=== PATIENT | female | born 1955 | race Caucasian/White ===

== ENCOUNTER 2016-09-10 06:48 | Emergency (ER) | payer OTHER ==
[~2016-09-10] VITALS: Ht 157.5 cm; Wt 84.0 kg
[~2016-09-10 06:48] MED LIST: ASPI-805 PO; BLOOD PRESSURE; OMEP20CA16 PO
[2016-09-10 06:51] VITALS: Ht 157.5 cm; Wt 84.0 kg
[2016-09-10] MEDS ORDERED: ONDANSETRON 4 MG INJ IV STA (08:19)
[2016-09-10] MEDS ORDERED: SOD CHLORIDE 0.9% 500 ML IV STA (08:19)
--- NOTE | 2016-09-10 08:39 | ERD ---
ER Documentation Chief Complaint Date/Time DATE: 09/10/16 TIME: 08:38 Chief Complaint dizziness since thursday HPI 61-year-old woman here for dizziness 2 days with elevated blood pressure this morning, she states she uses her medications and her blood pressure normally does not want so high. She denies abdominal pain, no chest pain, no shortness of breath, no fevers or chills, no vomiting or diarrhea, no complaints of weakness in her arms or legs. ROS All systems reviewed and are negative except as per history of present illness. Medications Home Meds Active Scripts Cephalexin* (Keflex*) 500 Mg Capsule, 500 MG PO QID for 5 Days, CAP Prov:BASIA LEDESMA MD 09/10/16 Reported Medications Enalapril Maleate* (Enalapril Maleate*) 5 Mg Tablet, 5 MG PO DAILY, TAB 09/10/16 Omeprazole* (Omeprazole*) 20 Mg Capsule.dr, 20 MG PO DAILY, CAP 06/21/14 Discontinued Reported Medications [Blood Pressure ] No Conflict Check, DAILY 06/21/14 Aspirin* ([place] Aspirin*) 81 Mg Tab.chew, 81 MG PO DAILY for 7 Days, TAB.CHEW 06/21/14 Allergies Allergies: Coded Allergies: No Known Allergy (Unverified , 09/10/16) PMhx/Soc Hypertension, gastritis History of Surgery: Yes (SINUS SURG) Anesthesia Reaction: No Hx Neurological Disorder: No Hx Respiratory Disorders: No Hx Cardiac Disorders: Yes (HIGH BP) Hx Psychiatric Problems: No Hx Miscellaneous Medical Probl: No Hx Alcohol Use: Yes (VERY OCCASIONALLY) Hx Substance Use: No Hx Tobacco Use: No (QUIT MANY YEARS) FmHx Family History: No diabetes Physical Exam Vitals Vital Signs Date Time Temp Pulse Resp B/P Pulse Ox O2 Delivery O2 Flow Rate FiO2 09/10/16 09:59 60 18 134/73 98 Room Air 09/10/16 08:39 61 18 150/86 100 Room Air 09/10/16 06:51 98.8 89 20 176/99 99 Physical Exam GENERAL: Well-developed, well-nourished, well-hydrated, in no apparent distress , looks nontoxic in appearance HEENT: Moist mucous membranes, pink conjunctiva, no cervical spine tenderness or step-off deformities, no goiter, no jaundice or icterus, extraocular movements intact without pain. No submandibular induration, and no pharyngeal erythema NEURO: Alert and oriented 3, cranial nerves II through XII intact bilaterally, pupils equal round reactive to light, no focal deficits or facial asymmetry, sensation intact distally Strength 5/5 in upper and lower extremities bilaterally CARDIAC: Regular rate and rhythm, no murmurs rubs or gallops LUNGS: Clear bilaterally no wheezing crackles or stridor ABDOMEN: Soft nontender, no guarding, no rigidity, no rebound, no psoas sign no obturator sign. Normoactive bowel sounds SKIN: Warm and dry to touch, no abrasions, contusions, or hematomas, no lacerations, no ecchymosis, no target lesions, and without ulcers EXTREMITIES: No clubbing cyanosis or edema, calves are bilaterally symmetrical, no Homans sign, no popliteal cord sign. Distal pulses equal and bilateral PSYCH: Normal affect without agitation or irritability Result Diagram: 09/10/16 0849 09/10/16 0849 Results 24 hrs Laboratory Tests Test 09/10/16 08:30 09/10/16 08:49 Urine Color LT. YELLOW Urine Clarity CLEAR Urine pH 6.0 Urine Specific [place] <=1.005 Urine Ketones NEGATIVE Urine Nitrite NEGATIVE Urine Bilirubin NEGATIVE Urine Urobilinogen 0.2 E.U./dL Urine Leukocyte Esterase 3+ Urine Microscopic RBC 5-10/HPF Urine Microscopic WBC 25-50/HPF Urine Epithelial Cells MODERATE Urine Bacteria MODERATE Urine Hemoglobin TRACE Urine Glucose NEGATIVE% Urine Total Protein NEGATIVE White Blood Count 7.810^3/ul Red Blood Count 4.6810^6/ul Hemoglobin 13.6g/dl Hematocrit 40.9% Mean Corpuscular Volume 87.4fl Mean Corpuscular Hemoglobin 29.1pg Mean Corpuscular Hemoglobin Concent 33.3g/dl Red Cell Distribution Width 13.2% Platelet Count 16259^3/UL Mean Platelet Volume 10.1fl Neutrophils % 65.1% Lymphocytes % 27.4% Monocytes % 6.0% Eosinophils % 0.4% Basophils % 0.5% Nucleated Red Blood Cells % 0.0/100WBC Neutrophils # 5.110^3/ul Lymphocytes # 2.110^3/ul Monocytes # 0.510^3/ul Eosinophils # 0.010^3/ul Basophils # 0.010^3/ul Nucleated Red Blood Cells # 0.010^3/ul Sodium Level 144mmol/L Potassium Level 4.1mmol/L Chloride Level 106mmol/L Carbon Dioxide Level 28mmol/L Anion Gap 14 Blood Urea Nitrogen 15mg/dl Creatinine 0.76mg/dl Glucose Level 125mg/dl Calcium Level 9.8mg/dl Total Bilirubin 0.4mg/dl Direct Bilirubin 0.00mg/dl Indirect Bilirubin 0.4mg/dl Aspartate Amino Transf (AST/SGOT) 21IU/L Alanine Aminotransferase (ALT/SGPT) 35IU/L Alkaline Phosphatase 89IU/L Troponin I < 0.012ng/ml Total Protein 8.2g/dl Albumin 5.1g/dl Globulin 3.10g/dl Albumin/Globulin Ratio 1.64 Lipase 230U/L Current Medications Medications (Trade) Dose Ordered Sig/Barbara Route PRN Reason Start Time Stop Time Status Last Admin Dose Admin Sodium Chloride (NS) 500 ml @ 500 mls/hr Q1H STAT IV 09/10/16 08:19 09/10/16 09:18 DC 09/10/16 08:52 Ondansetron HCl (Zofran Inj) 4 mg ONCE STAT IV 09/10/16 08:19 09/10/16 08:21 DC 09/10/16 08:50 Clonidine (Catapres) 0.1 mg ONCE ONCE PO 09/10/16 08:30 09/10/16 08:31 DC 09/10/16 08:51 Cephalexin (Keflex) 500 mg ONCE ONCE PO 09/10/16 09:30 09/10/16 09:34 DC 09/10/16 09:58 Procedures/MDM IV line was established patient was placed on cardiac rehab nurse rhythm strip revealed a sinus rhythm at about 60 bpm with upright P and T waves. Patient was afebrile. EKG performed, read by me revealed a normal sinus rhythm at 63 bpm, left axis deviation, narrow QRS complex with no concerning ST elevations or depressions noted. There is poor R-wave progression in precordial leads consistent with previous OR. CT scan of the brain was performed that was negative for acute bleed mass or shift. I administered 1 L normal saline intravenously and Zofran 4 mg IV, patient's blood pressure improved without any further intervention. CBC was unremarkable, electrolytes normal, liver function tests were normal, troponin was negative. Urine analysis was concerning for early urinary tract infection. I treated her here with cephalexin 500 mg p.o. 1. Patient's neurologic exam remained normal and her dizziness did improve and she was ambulatory without difficulty and had no neurologic deficits on reexamination. Differential diagnoses considered, included but not limited to acute coronary syndrome, pulmonary embolism, aortic dissection, abdominal aortic aneurysm, sepsis, stroke, meningitis, encephalitis, pneumonia, appendicitis, cholecystitis , bowel obstruction, pyelonephritis, nephrolithiasis, cystitis, as well as metabolic, hematologic, and electrolyte abnormalities. As well as abscess, cellulitis, fractures, and dislocations. Patient feels much better at this time, and vital signs are normal, symptoms have improved. I did give strict instructions to return to the ED if symptoms continue or worsen, patient will otherwise follow-up with primary care physician. Patient understood instructions and agreed to plan. Disclaimer: Inadvertent spelling or grammatical errors are likely due to EHR/ dictation software use and do not reflect on the overall quality of patient care. Departure Diagnosis: Primary Impression: Dizziness Additional Impressions: Hypertension Hypertension type: essential hypertension Qualified Code: I10 - Essential hypertension UTI (urinary tract infection) Urinary tract infection type: acute cystitis Hematuria presence: without hematuria Qualified Code: N30.00 - Acute cystitis without hematuria Condition: BASIA Mack MD Sep 10, 2016 08:39
[2016-09-10 09:02] LABS: ADD UMIC YES; URINE BILIRUBIN (Dip) NEGATIVE (NEGATIVE); URINE BLOOD (Dip) TRACE (NEGATIVE); URINE COLOR LT. YELLOW (YELLOW); URINE GLUCOSE (Dip) NEGATIVE (NEGATIVE); URINE KETONES (Dip) NEGATIVE (NEGATIVE); URINE LEUKOCYTE ESTERASE (Dip) 3+ (NEGATIVE); URINE NITRITE (Dip) NEGATIVE (NEGATIVE); URINE TOTAL PROTEIN (Dip) NEGATIVE (NEGATIVE); URINE UROBILINOGEN (Dip) 0.2 E.U./dL (0.1-1.0)
[2016-09-10 09:08] LABS: ADD SCAN DIFF NO
[2016-09-10 09:12] LABS: BASOPHILS % 0.5 % (0.0-2.0); EOSINOPHILS % 0.4 % (0.0-7.0); HEMATOCRIT 40.9 % (37.0-47.0); HEMOGLOBIN 13.6 g/dl (12.0-16.0); LYMPHOCYTES # 2.1 10^3/ul (0.8-2.9); LYMPHOCYTES % 27.4 % (15.0-51.0); MEAN CORPUSCULAR HEMOGLOBIN 29.1 pg (29.0-33.0); MEAN CORPUSCULAR HGB CONC 33.3 g/dl (32.0-37.0); MEAN CORPUSCULAR VOLUME 87.4 fl (82.0-101.0); MEAN PLATELET VOLUME 10.1 fl (7.4-10.4); MONOCYTE # 0.5 10^3/ul (0.3-0.9); NEUTROPHIL # 5.1 10^3/ul (1.6-7.5); NEUTROPHILS % 65.1 % (39.0-77.0); PLATELET COUNT 270 10^3/UL (140-415); RED BLOOD COUNT 4.68 10^6/ul (4.20-5.40); RED CELL DISTRIBUTION WIDTH 13.2 % (11.5-14.5); WHITE BLOOD COUNT 7.8 10^3/ul (4.8-10.8)
[2016-09-10 09:20] LABS: BACTERIA,URINE MODERATE
[2016-09-10 09:27] LABS: ALANINE AMINOTRANSFERASE 35 IU/L (13-69); ALBUMIN 5.1 g/dl (3.3-4.9); ALBUMIN/GLOBULIN RATIO 1.64; ALKALINE PHOSPHATASE 89 IU/L (42-121); ANION GAP 14 (8-16); ASPARTATE AMINO TRANSFERASE 21 IU/L (15-46); BILIRUBIN,INDIRECT 0.4 mg/dl (0-1.1); BILIRUBIN,TOTAL 0.4 mg/dl (0.2-1.3); BLOOD UREA NITROGEN 15 mg/dl (7-20); CALCIUM 9.8 mg/dl (8.4-10.2); CARBON DIOXIDE 28 mmol/L (21-31); CHLORIDE 106 mmol/L (97-110); CREATININE 0.76 mg/dl (0.44-1.00); GLUCOSE 125 mg/dl (70-220); POTASSIUM 4.1 mmol/L (3.5-5.1); SODIUM 144 mmol/L (135-144); TOTAL PROTEIN 8.2 g/dl (6.1-8.1)
[2016-09-10] MEDS ORDERED: CEPHALEXIN 500 MG CAP PO ONE (09:30)
[2016-09-10] MEDS ORDERED: ENAL5TAB PO (09:31)
[2016-09-10] MEDS ORDERED: CEPH-443 PO (09:38)
--- NOTE | 2016-09-10 09:38 | RADRPT ---
PROCEDURE: CT Brain without contrast. CLINICAL INDICATION: Dizziness for 3 days. Rule out intracranial hemorrhage. TECHNIQUE: CT scan of the brain was performed on a multidetector high-resolution CT scan. Axial im aging was obtained of the brain without contrast administration. Coronal and sagittal reformatted i mages were obtained from the axial source images. Standard CT scan of the head without contrast prot ocols were performed. The total exam CTDI equals 44.81 mGy and the total exam DLP equals 630.2 mGy-cm. One or more of the following dose reduction techniques were used: - Automated exposure control. - Adjustment of the mA and/or kV according to patient size. Use of iterative reconstruction technique. COMPARISON: None. FINDINGS: The ventricular system and peripheral CSF spaces are unremarkable. Negative for intracranial masses hemorrhages or midline shift. The horn-white matter junction is unremarkable. There is mild nonsp ecific periventricular deep white matter changes consistent with chronic microvascular ischemic dise ase. the bones and calvarium are intact. Paranasal sinuses and mastoids are unremarkable. IMPRESSION: 1. No evidence of intracranial masses hemorrhages or midline shift. 2. Mild nonspecific chronic microvascular ischemic disease. RPTAT:AAJJ Physician Moses Date Time Electronically viewed and signed by Physician Moses on 09/10/2016 09:37 BM/
[2016-09-10 09:43] LABS: TROPONIN-I < 0.012 ng/ml (0.00-0.12)
[2016-09-10 09:59] VITALS: BP 134/73; PULSE 60; RESP 18
== END 2016-09-10 10:15 | disposition home or self-care (01) ==
LOC: E/R 06:48
DX: R42 Dizziness and giddiness (principal); I10 Essential (primary) hypertension; N30.00 Acute cystitis without hematuria; Z79.82 Long term (current) use of aspirin; Z87.891 Personal history of nicotine dependence
CPT/HCPCS: 36415; 70450; 80053; 81001; 83690; 84484; 85025; 93005; 96374; J2405; J7040; Z7502; Z7610

== ENCOUNTER 2016-09-12 06:21 | Emergency (ER) | payer OTHER ==
[~2016-09-12] VITALS: Ht 160 cm; Wt 83.0 kg
[~2016-09-12 06:21] MED LIST changes: -ASPI-805 PO; -BLOOD PRESSURE; +CEPH-443 PO; +ENAL5TAB PO
[2016-09-12 06:30] VITALS: Ht 160 cm; Wt 83.0 kg
[2016-09-12] MEDS ORDERED: MECL12.574 PO (06:53)
--- NOTE | 2016-09-12 06:57 | ERD ---
ER Documentation Chief Complaint Date/Time DATE: 09/12/16 TIME: 06:40 Chief Complaint dizziness w/ NV X1 week HPI 61-year-old female presents to the emergency department complaining of vertiginous dizziness that she has had for a week. Patient states that she had a study performed of her abdomen. She believes that after receiving what I presume is contrast for the study, she began having a nonspecific vertiginous dizziness. She feels as if the contrast may have made her sick. She presented to our emergency department 2 days ago complaining of vertiginous dizziness as well as concerns over her high blood pressure. She was evaluated with a full set of lab tests indicating no evidence of kidney injury, dehydration or infection other than a UTI. She was not septic at that time. She also had a CT scan of her head demonstrating no signs of stroke. She was provided with medications for her urinary tract infection which she is taking, but returns to the emergency department today with ongoing vertigo. She reports no headache, focal weakness, focal numbness, difficulty speaking or other stroke symptoms. She feels nauseous with the vertigo, but has had no severe vomiting. She reports no fevers, chills or other complaints. ROS All systems reviewed and are negative except as per history of present illness. Medications Home Meds Active Scripts Meclizine Hcl* (Antivert*) 12.5 Mg Tab, 12.5 MG PO Q6H Y for DIZZINESS, #20 TAB Prov:MONICA MOSES 09/12/16 Cephalexin* (Keflex*) 500 Mg Capsule, 500 MG PO QID for 5 Days, CAP Prov:BASIA LEDESMA MD 09/10/16 Reported Medications Enalapril Maleate* (Enalapril Maleate*) 5 Mg Tablet, 5 MG PO DAILY, TAB 09/10/16 Omeprazole* (Omeprazole*) 20 Mg Capsule.dr, 20 MG PO DAILY, CAP 06/21/14 Discontinued Reported Medications [Blood Pressure ] No Conflict Check, DAILY 06/21/14 Aspirin* ([place] Aspirin*) 81 Mg Tab.chew, 81 MG PO DAILY for 7 Days, TAB.CHEW 06/21/14 Allergies Allergies: Coded Allergies: No Known Allergy (Unverified , 09/10/16) PMhx/Soc History of Surgery: No Anesthesia Reaction: No Hx Neurological Disorder: No Hx Respiratory Disorders: No Hx Cardiac Disorders: No Hx Psychiatric Problems: No Hx Miscellaneous Medical Probl: No Hx Alcohol Use: No Hx Substance Use: No Hx Tobacco Use: No Smoking Status: Never smoker FmHx Noncontributory for chief complaint Physical Exam Vitals Vital Signs Date Time Temp Pulse Resp B/P Pulse Ox O2 Delivery O2 Flow Rate FiO2 09/12/16 06:30 98.3 77 18 181/77 99 Physical Exam GENERAL: The patient is well developed and appropriate for usual state of health in no apparent distress HEENT: Pupils equal, round, and reactive to light. EOMI. There is no scleral icterus. NECK: C-spine is soft and supple, there is no meningismus. There is no cervical lymphadenopathy. LUNGS: Clear to auscultation bilaterally. There are no rales, wheezes or rhonchi. HEART: Regular rate and rhythm, no murmurs, clicks, rubs or gallops. ABDOMEN: Soft, non-tender, non-distended. There are bowel sounds in all four quadrants. No rebound or guarding. EXTREMITIES: There is no peripheral cyanosis or edema. No focal swelling or erythema. NEURO: The patient moves all four extremities with 5/5 strength. Cranial nerves II - XII are intact. Normal gait. Alert and oriented. Finger to nose is normal bilaterally SKIN: There is no apparent rash or petechiae. HEME/LYMPHATIC: There is no evidence of excessive bruising or lymphedema. PSYCHIATRIC: The patient does not appear anxious or depressed. Procedures/MDM Patient was taken to a room, seen and examined Medical decision makin-year-old female presents to the emergency department with ongoing concerns of what appears to be a peripheral vertigo. Patient has no signs of stroke or other findings that make me concerned of central vertigo and she has had a CT scan in the last 2 days demonstrating no signs of intracranial concerns. She has no evidence of dehydration, sepsis or other high-risk issues that may be causing the dizziness. After review of her lab tests from 2 days ago, it is clear that her concern over the contrast causing her dizziness is also unfounded. After reassurance, she is clinically well and appears appropriate for outpatient care. Departure Diagnosis: Primary Impression: Vertigo Condition: Stable Patient Instructions: Vertigo, Unspecified Additional Instructions: See your doctor for follow-up as discussed. Take a copy of your test results, if appropriate, to this follow-up visit. See your doctor or return here if your symptoms do not improve as expected. At any time, please return to the emergency department for any change or worsening in her symptoms. MONICA MOSES Sep 12, 2016 06:57
[2016-09-12 07:40] VITALS: BP 148/96; PULSE 86; RESP 20; TEMP 98.3
[2016-09-12] MEDS ORDERED: MECLIZINE 12.5 MG TAB PO ONE (08:00)
== END 2016-09-12 07:42 | disposition home or self-care (01) ==
LOC: E/R 06:21
DX: R42 Dizziness and giddiness (principal); R40.2252 Coma scale, best verbal response, oriented, at arrival to emergency department; R40.2142 Coma scale, eyes open, spontaneous, at arrival to emergency department; R40.2362 Coma scale, best motor response, obeys commands, at arrival to emergency department; Z79.82 Long term (current) use of aspirin
CPT/HCPCS: Z7502; Z7610; 99283

== ENCOUNTER 2017-03-28 21:06 | Emergency (ER) | payer OTHER ==
[~2017-03-28] VITALS: Ht 160 cm; Wt 80.9 kg
[~2017-03-28 21:06] MED LIST changes: +MECL12.574 PO
[2017-03-28 21:12] VITALS: Ht 160 cm; Wt 80.9 kg
[2017-03-28] MEDS ORDERED: LABETALOL HCL 20MG INJ IV ONE (22:30)
[2017-03-28 22:50] LABS: BASOPHIL # 0.1 10^3/ul (0.0-0.1); BASOPHILS % 0.6 % (0.0-2.0); EOSINOPHILS % 0.4 % (0.0-7.0); HEMATOCRIT 36.4 % (37.0-47.0); HEMOGLOBIN 12.8 g/dl (12.0-16.0); LYMPHOCYTES # 2.7 10^3/ul (0.8-2.9); LYMPHOCYTES % 24.4 % (15.0-51.0); MEAN CORPUSCULAR HEMOGLOBIN 29.7 pg (29.0-33.0); MEAN CORPUSCULAR HGB CONC 35.2 g/dl (32.0-37.0); MEAN CORPUSCULAR VOLUME 84.5 fl (82.0-101.0); MONOCYTE # 0.7 10^3/ul (0.3-0.9); MONOCYTES % 6.2 % (0.0-11.0); NEUTROPHIL # 7.4 10^3/ul (1.6-7.5); NEUTROPHILS % 68.1 % (39.0-77.0); PLATELET COUNT 264 10^3/UL (140-415); RED BLOOD COUNT 4.31 10^6/ul (4.20-5.40); WHITE BLOOD COUNT 10.9 10^3/ul (4.8-10.8)
--- NOTE | 2017-03-28 22:55 | ERD ---
ER Documentation Chief Complaint Chief Complaint Dizziness, HTN episode HPI This 62-year-old female, presents for dizziness, lightheadedness and a high blood pressure which she took at home. Also had a dry mouth and increased urinary frequency. Denies chest pain or shortness of breath. States that she is taking her normal metoprolol and an HEMA inhibitor. She notes that over time lately her blood pressure has been increasing over the last week and her blood pressure medication is no longer controlling it. All day today she has been feeling bad with the dizziness and uneasiness. ROS All systems reviewed and are negative except as per history of present illness. Medications Home Meds Active Scripts Amlodipine Besylate* (Amlodipine Besylate*) 10 Mg Tablet, 10 MG PO DAILY, #30 TAB Prov:SHUKRI QUINTANILLA DO 03/29/17 Sertraline Hcl* (Sertraline Hcl*) 25 Mg Tablet, 25 MG PO DAILY, #30 TAB Prov:SHUKRI QUINTANILLA DO 03/29/17 Meclizine Hcl* (Antivert*) 12.5 Mg Tab, 12.5 MG PO Q6H Y for DIZZINESS, #20 TAB Prov:MONICA MOSES 09/12/16 Cephalexin* (Keflex*) 500 Mg Capsule, 500 MG PO QID for 5 Days, CAP Prov:BASIA LEDESMA MD 09/10/16 Reported Medications Enalapril Maleate* (Enalapril Maleate*) 5 Mg Tablet, 5 MG PO DAILY, TAB 09/10/16 Omeprazole* (Omeprazole*) 20 Mg Capsule.dr, 20 MG PO DAILY, CAP 06/21/14 Allergies Allergies: Coded Allergies: No Known Allergy (Unverified , 09/10/16) PMhx/Soc History of Surgery: No Anesthesia Reaction: No Hx Neurological Disorder: No Hx Respiratory Disorders: No Hx Cardiac Disorders: No Hx Psychiatric Problems: No Hx Miscellaneous Medical Probl: No Hx Alcohol Use: No Hx Substance Use: No Hx Tobacco Use: No Physical Exam Vitals Vital Signs Date Time Temp Pulse Resp B/P Pulse Ox O2 Delivery O2 Flow Rate FiO2 03/28/17 23:30 98.5 85 20 127/75 94 Room Air 03/28/17 22:25 98.5 73 20 163/82 97 Room Air 03/28/17 21:12 98.5 100 20 199/104 99 Physical Exam Const: [] Distress, appears uncomfortable, obese female Head: Atraumatic Eyes: Normal Conjunctiva EOMI, PERRLA ENT: Normal External Ears, Nose and Mouth. Neck: Full range of motion.. No JVD although difficult to evaluate secondary to generous habitus Resp: Clear to auscultation bilaterally Cardio: Regular tachycardia, no murmurs Abd: Soft, non tender, non distended. Normal bowel sounds Skin: No petechiae or rashes Back: No midline or flank tenderness Ext: No cyanosis, or edema Neur: Awake and alert and oriented 3, cranial to 12 intact, no cerebellar deficits Psych: Anxious Result Diagram: 03/28/171 03/28/172240 Results 24 hrs Laboratory Tests Test 03/28/17 22:40 03/28/17 22:41 Urine Color STRAW Urine Clarity CLEAR Urine pH 5.0 Urine Specific [place] 1.013 Urine Ketones TRACEmg/dL Urine Nitrite NEGATIVEmg/dL Urine Bilirubin NEGATIVEmg/dL Urine Urobilinogen NEGATIVEmg/dL Urine Leukocyte Esterase NEGATIVELeu/ul Urine Microscopic RBC 0/HPF Urine Microscopic WBC 2/HPF Urine Hemoglobin 1+mg/dL Urine Glucose NEGATIVEmg/dL Urine Total Protein NEGATIVEmg/dl White Blood Count 10.910^3/ul Red Blood Count 4.3110^6/ul Hemoglobin 12.8g/dl Hematocrit 36.4% Mean Corpuscular Volume 84.5fl Mean Corpuscular Hemoglobin 29.7pg Mean Corpuscular Hemoglobin Concent 35.2g/dl Red Cell Distribution Width 13.0% Platelet Count 13081^3/UL Mean Platelet Volume 10.0fl Neutrophils % 68.1% Lymphocytes % 24.4% Monocytes % 6.2% Eosinophils % 0.4% Basophils % 0.6% Nucleated Red Blood Cells % 0.0/100WBC Neutrophils # 7.410^3/ul Lymphocytes # 2.710^3/ul Monocytes # 0.710^3/ul Eosinophils # 0.010^3/ul Basophils # 0.110^3/ul Nucleated Red Blood Cells # 0.010^3/ul Sodium Level 140mmol/L Potassium Level 4.0mmol/L Chloride Level 105mmol/L Carbon Dioxide Level 24mmol/L Anion Gap 15 Blood Urea Nitrogen 18mg/dl Creatinine 0.76mg/dl Glucose Level 146mg/dl Calcium Level 9.7mg/dl Troponin I < 0.012ng/ml Current Medications Medications (Trade) Dose Ordered Sig/Barbara Route PRN Reason Start Time Stop Time Status Last Admin Dose Admin Labetalol HCl (Labetalol) 10 mg ONCE ONCE IV 03/28/17 22:30 03/28/17 22:31 DC 03/28/17 22:45 Alprazolam (Xanax) 0.5 mg ONCE ONCE PO 03/28/17 23:00 03/28/17 23:01 DC 03/28/17 22:45 Procedures/MDM 62-year-old female with severe hypertension leading to a feeling of dizziness. I have low suspicion for subarachnoid hemorrhages patient has not had any pain. Blood pressure was lowered acutely with medication labetalol IV all of her symptoms resolved and she felt well. I also gave her a 0.5 mg Xanax as she is on Ativan and felt symptoms anxiety such as dry mouth and had tachycardia. Negative troponin. No evidence of acute infection. She is completely asymptomatic I am going to discharge her with primary care follow-up and return precautions with instructions to obtain an echocardiogram as an outpatient. Also discharging her with Zoloft to begin treatment for long-term anxiety as well as amlodipine 10 mg for blood pressure control. Primary care follow-up as soon as possible which may not be until Thursday because of the holiday weekend. EKG interpretation: Normal sinus rhythm rate of 91, left axis deviation, low voltage EKG, possible mild T-wave flattening in all leads secondary to low voltage, no ST or T-wave changes concerning for acute ischemia. Abnormal EKG Cardiac e monitor interpretation: Sinus tachycardia and normal sinus rhythm without arrhythmia Chest x-ray interpretation: See no acute process. I see no widened mediastinum , pneumothorax, no pulmonary edema, no fractures Critical care time greater than 35 minutes: This includes use of vasoactive pain medication labetalol in a patient with severe hypertension, correction of unstable vital signs, multiple space bedside to reassess her status, review of chart, discussion with patient. This does not include any billable procedures. Departure Diagnosis: Primary Impression: Hypertensive crisis Additional Impression: Dizziness Condition: SHUKRI Olvera DO Mar 28, 2017 22:54
[2017-03-28] MEDS ORDERED: ALPRAZOLAM 0.25 MG TAB PO ONE (23:00)
[2017-03-28 23:07] LABS: ADD UMIC YES; UR ASCORBIC ACID NEGATIVE (NEGATIVE); UR BILIRUBIN (Dip) NEGATIVE (NEGATIVE); UR BLOOD (Dip) 1+ mg/dL (NEGATIVE); UR CLARITY CLEAR (CLEAR); UR COLOR STRAW (YELLOW); UR GLUCOSE (Dip) NEGATIVE (NEGATIVE); UR KETONES (Dip) TRACE mg/dL (NEGATIVE); UR LEUKOCYTE ESTERASE (Dip) NEGATIVE Leu/ul (NEGATIVE); UR NITRITE (Dip) NEGATIVE (NEGATIVE); UR RBC 0 /HPF (0-5); UR SPECIFIC GRAVITY (Dip) 1.013 (1.003-1.030); UR TOTAL PROTEIN (Dip) NEGATIVE (NEGATIVE); UR UROBILINOGEN (Dip) NEGATIVE (NEGATIVE)
--- NOTE | 2017-03-28 23:16 | RADRPT ---
PROCEDURE: XR Chest. CLINICAL INDICATION: Chest pain TECHNIQUE: Single frontal view of the chest. COMPARISON: None. FINDINGS: The cardiomediastinal silhouette is within normal limits. The lungs are clear. No signs of pleural f luid or pneumothorax are seen. The osseous structures and soft tissues are unremarkable. IMPRESSION: No evidence for active cardiopulmonary disease. RPTAT: UU Physician Flo Date Time Electronically viewed and signed by Physician Flo on 03/28/2017 23:16 RS/
[2017-03-28 23:20] LABS: ANION GAP 15 (8-16); BLOOD UREA NITROGEN 18 mg/dl (7-20); CALCIUM 9.7 mg/dl (8.4-10.2); CARBON DIOXIDE 24 mmol/L (21-31); CHLORIDE 105 mmol/L (97-110); CREATININE 0.76 mg/dl (0.44-1.00); GLUCOSE 146 mg/dl (70-220); SODIUM 140 mmol/L (135-144)
[2017-03-28 23:32] LABS: TROPONIN-I < 0.012 ng/ml (0.00-0.12)
[2017-03-29] MEDS ORDERED: AMLO-147 PO (02:25)
[2017-03-29] MEDS ORDERED: SERT25TA83 PO (02:25)
[2017-03-29 02:30] VITALS: BP 107/68; PULSE 65; RESP 18; TEMP 98
== END 2017-03-29 02:36 | disposition home or self-care (01) ==
LOC: E/R 21:06
DX: I16.9 Hypertensive crisis, unspecified (principal)
CPT/HCPCS: 36415; 71010; 80048; 81001; 84484; 85025; 96374; Z7502; Z7610; 93005